=== PATIENT | male | born 1945 | race Caucasian/White ===

== ENCOUNTER 2018-07-30 13:15 | Emergency (ER) | payer MEDICARE ==
--- NOTE | 2018-07-30 13:56 | Emergency Department Record ---
History of Present Illness - General Chief complaint: Male Urogenital Problem Stated complaint: uit? AND CONSTIPATION Time Seen by Provider: 07/30/18 13:22 Source: Patient, Family Mode of Arrival: Ambulatory Limitations: No limitations - History of Present Illness Initial comments: 73 yo male presents with long standing urinary changes since a diagnosis of prostate cancer two years ago. Recently he has developed more frequency and urgency. NO fevers. He has also been constipated. No significant bowel movement for 3 days. He is passing small lumps of firm stool. No nausea or vomiting. Normal appetite. MD Complaint: Dysuria, Other (constipation) Location: Abdomen Severity: Mild Quality: Other (pressure) Improves with: None Worsens with: Bowel movement - Related Data Home Medications Medication Instructions Recorded Confirmed Last Taken Abiraterone Acetate 1,000 mg PO DAILY 07/30/18 07/30/18 Unknown Atorvastatin Calcium [Lipitor] 20 mg PO DAILY 07/30/18 07/30/18 Unknown Citalopram Hydrobromide [Celexa] 20 mg PO DAILY 07/30/18 07/30/18 Unknown Lisinopril [Prinivil] 40 mg PO DAILY 07/30/18 07/30/18 Unknown Prednisone [Prednisone 10Mg] 10 mg PO DAILY 07/30/18 07/30/18 Unknown Previous Rx's Medication Instructions Recorded Cephalexin [Keflex] 500 mg PO TID #21 cap 07/30/18 Docusate Sodium [Colace] 100 mg PO BID #20 cap 07/30/18 Allergies Allergy/AdvReac Type Severity Reaction Status Date / Time No Known Drug Allergies Allergy Verified 07/30/18 13:53 Travel Screening - Travel/Exposure Within Last 30 Days Have you traveled within the last 30 days?: No - Travel/Exposure Within Last Year Have you traveled outside the [place] in the last year?: No - Additonal Travel Details Have you been exposed to anyone with a communicable illness?: No - Travel Symptoms Symptom Screening: None Review of Systems Constitutional: Denies: Chills, Fever, Malaise, Weakness Eyes: Denies: Eye discharge ENT: Denies: Congestion, Throat pain Respiratory: Denies: Cough, Dyspnea Cardiovascular: Denies: Chest pain, Palpitations, Syncope Endocrine: Reports: Fatigue. Denies: Polydipsia, Polyuria Gastrointestinal: Reports: As per HPI, Abdominal pain, Constipation. Denies: Diarrhea, Nausea, Vomiting Genitourinary: Reports: Dysuria, Frequency, Incontinence, Urgency. Denies: Hematuria, Retention, Testicular pain, Testicular mass Musculoskeletal: Denies: Arthralgia, Back pain, Neck pain Skin: Denies: Bruising, Change in color, Rash Neurological: Denies: Numbness, Weakness Psychiatric: Denies: Anxiety Hematological/Lymphatic: Denies: Easy bleeding, Easy bruising Past Medical History - SOCIAL HISTORY Smoking Status: Never smoker Alcohol Use: None Drug Use: None - RESPIRATORY Hx Respiratory Disorders: No - CARDIOVASCULAR Hx Cardio Disorders: Yes Hx Hypertension: Yes - NEURO Hx Neuro Disorders: No - GI Hx GI Disorders: No - Hx Genitourinary Disorders: Yes Hx Prostate Problems: Yes (prostate cancer with mets) - ENDOCRINE Hx Endocrine Disorders: No - MUSCULOSKELETAL Hx Musculoskeletal Disorders: No - PSYCH Hx Psych Problems: Yes Hx Depression: Yes - HEMATOLOGY/ONCOLOGY Hx Hematology/Oncology Disorders: Yes Hx Cancer: Yes (prostate cancer 2018) Hx Chemotherapy: Yes (ongoing oral chemo) Hx Radiation Therapy: Yes (last radiation 03/2018) Family Medical History Any Significant Family History?: No Physical Exam - General General Appearance: Alert, Oriented x3, Cooperative, No acute distress Limitations: No limitations - Head Head exam: Atraumatic, Normal inspection - Eye Eye exam: Normal appearance, PERRL. negative: Conjunctival injection, Scleral icterus - ENT ENT exam: Normal exam, Mucous membranes moist Ear exam: Normal external inspection Nasal Exam: Normal inspection Mouth exam: Normal external inspection - Neck Neck exam: Normal inspection - Respiratory Respiratory exam: Normal lung sounds bilaterally. negative: Respiratory distress - Cardiovascular Cardiovascular Exam: Regular rate, Normal rhythm, Normal heart sounds - GI/Abdominal GI/Abdominal exam: Soft. negative: Distended, Guarding, Tenderness - Rectal Rectal exam: Heme (-) stool, Normal inspection, Normal rectal tone, Prostate enlargement. negative: Black stool, Bloody stool, Decreased rectal tone, Fecal impaction, Heme (+) stool, Hemorrhoids, Mass, Normal prostate, Prostate tenderness, Tenderness - exam: Deferred - Extremities Extremities exam: Normal inspection. negative: Pedal edema, Tenderness - Back Back exam: Denies: CVA tenderness (R), CVA tenderness (L) - Neurological Neurological exam: Alert, Oriented X3 - Psychiatric Psychiatric exam: negative: Agitated, Anxious - Skin Skin exam: Dry, Intact, Normal color, Warm Course Vital Signs 07/30/18 13:44 Temperature 99.0 F Pulse Rate 77 Respiratory 20 Rate Blood Pressure 173/115 Pulse Ox 97 - Reevaluation(s) Reevaluation #1: 07/30/18 14:54 The UA was reviewed. Few WBC's noted. The abdominal XR demonstrated stool throughout. No obstruction We discussed home care, reasons to return and plan for follow up with his urologist if the symptoms continue Medical Decision Making - Lab Data Lab Results 07/30/18 Range/Units 13:22 Urine Color Cancelled Urine Appearance Cancelled Urine pH Cancelled Ur Specific [place] Cancelled Urine Protein Cancelled Urine Glucose (UA) Cancelled Urine Clinitest Cancelled Urine Ketones Cancelled Urine Blood Cancelled Urine Nitrite Cancelled Urine Bilirubin Cancelled Urine Ictotest Cancelled Prot Sulfosalicylic Acd Cancelled Urine Urobilinogen Cancelled Ur Leukocyte Esterase Cancelled Urine RBC Cancelled Urine WBC Cancelled Ur Epithelial Cells Cancelled U Non-Squamous Epi Cells Cancelled Ur Transition Epith Cell Cancelled Ur Renal Epithelial Cell Cancelled Calcium Oxalate Crystal Cancelled Uric Acid Crystals Cancelled Triple Phos Crystals Cancelled Other Crystals Cancelled Amorphous Sediment Cancelled Urine Bacteria Cancelled Hyaline Casts Cancelled Fine Granular Casts Cancelled Coarse Granular Casts Cancelled Waxy Casts Cancelled RBC Casts Cancelled WBC Casts Cancelled Other Casts Cancelled Urine Mucus Cancelled Urine Other Cancelled Urine Trichomonas Cancelled Urine Yeast Cancelled Urine Sperm Cancelled Ur Oval Fat Bodies Cancelled Disposition Disposition: Discharge Clinical Impression: Dysuria, Constipation Disposition: Home, Self-Care Condition: (1) Good Instructions: Constipation (ED) Additional Instructions: Call your doctor for the next available follow up appointment Review this ER visit and the tests performed with your family doctor Return to the ER for a recheck if worse, any new concerns or questions Take the prescriptions provided as directed Prescriptions: Docusate Sodium [Colace] 100 mg PO BID #20 cap Cephalexin [Keflex] 500 mg PO TID #21 cap Forms: Patient Portal Access Time of Disposition: 14:59 Quality - Quality Measures Quality Measures: N/A - Blood Pressure Screening Does Patient Have Any of the Following: Active Dx of HTN Blood Pressure Classification: Hypertensive Reading Systolic Measurement: 160 Diastolic Measurement: 109 Screening for High Blood Pressure: Patient Exclusion, Hx of HTN [[id number]]
[2018-07-30 14:39] LABS: URINE APPEARANCE CLEAR; URINE BILIRUBIN NEGATIVE (NEGATIVE); URINE BLOOD SMALL (NEGATIVE); URINE COLOR YELLOW; URINE GLUCOSE (UA) NEGATIVE (NEGATIVE); URINE KETONE NEGATIVE (NEGATIVE); URINE LEUKOCYTE ESTERASE NEGATIVE (NEGATIVE); URINE NITRITE NEGATIVE (NEGATIVE); URINE PROTEIN NEGATIVE (NEGATIVE); URINE UROBILINOGEN 0.2 E.U./dL (0.20 - 1.00)
[2018-07-30 14:48] LABS: URINE BACTERIA NONE SEEN; URINE EPITHELIAL CELLS 0 - 2 (FEW); URINE RBC 0 - 2 (NONE SEEN)
--- NOTE | 2018-08-02 06:24 | RADIOLOGY REPORT ---
DATE: 07/30/2018 at 1421. EXAM: ABDOMEN TWO VIEWS. HISTORY: ABDOMINAL PRESSURE. CONSTIPATION. TECHNIQUE: AP, supine, and upright views of the abdomen are obtained. COMPARISON: None. FINDINGS: Gas and stool are noted throughout a nondilated colon to the level of the rectum. A few gas-distended, nondilated small bowel loops are present without worrisome air fluid levels. No mass, organomegaly, or suspicious calcification. A small, round calcification in the inferior right hemipelvis is consistent with a phlebolith. No free intraperitoneal air. There are degenerative changes scattered throughout the visualized spine with associated S-shaped scoliosis. There is increased density involving the lateral aspect of the left sixth rib. This segment appears thickened. It is indeterminate whether this is an old healed fracture deformity or a focal blastic lesion. Additionally, the osseus structures appear somewhat mottled throughout, and there is questionable increased density throughout the T7 vertebral body. A blastic process such as metastasis from prostate carcinoma cannot be excluded. IMPRESSION: 1. NO EVIDENCE OF MECHANICAL BOWEL OBSTRUCTION OR FREE INTRAPERITONEAL AIR. STOOL VOLUME WITHIN THE COLON IS SMALL TO MODERATE. 2. THE OSSEUS STRUCTURES APPEAR SOMEWHAT MOTTLED, AND THERE IS INCREASED DENSITY WITHIN THE T7 VERTEBRA. A BLASTIC PROCESS SUCH METASTASIS FROM PROSTATE CARCINOMA CANNOT BE EXCLUDED. ADDITIONALLY, THERE IS INCREASED DENSITY WITHIN THE LATERAL LEFT SIXTH RIB WHICH APPEARS SOMEWHAT EXPANDED. DIAGNOSTIC CONSIDERATIONS INCLUDE OLD, HEALED FRACTURE DEFORMITY OR BLASTIC NEOPLASM. Job Number: [id number] [facility]
== END 2018-07-30 15:19 | disposition home or self-care (01) ==
LOC: ER 13:15
DX: K59.00 Constipation, unspecified (principal); R30.0 Dysuria; I10 Essential (primary) hypertension; Z85.46 Personal history of malignant neoplasm of prostate
CPT/HCPCS: 74019; 81001; 99283; 99284